=== PATIENT | male | born 1990 | race Caucasian/White ===

== ENCOUNTER 2017-05-29 13:00 | Emergency (ER) | payer BC ==
[2017-05-29] MEDS ORDERED: IBUPROFEN 600 MG TAB PO ONE (13:52)
--- NOTE | 2017-05-29 13:55 | EDPHY ---
H & P Time Seen by Provider: 05/29/17 13:42 HPI/ROS: CHIEF COMPLAINT: Left shoulder injury HISTORY OF PRESENT ILLNESS: Patient was [place] and climbing at the [place] when he fell off and hit his wrist on a hold on the way down and thinks he dislocated his shoulder. Pain in the left shoulder which is severe with movement or palpation. REVIEW OF SYSTEMS: No elbow wrist or hand symptoms. PAST MEDICAL HISTORY: Negative General Appearance: Alert and conversant, cooperative. No clavicular tenderness. Left AC step-off. Limited range of motion of the left shoulder. No humeral or elbow or forearm wrist or hand tenderness. Normal motor sensory and radial pulse in the left hand. Normal axillary nerve sensation. Emergency Department course/MDM: One-view x-ray shows anterior dislocation. Procedure: Dislocation reduction. Indication: Dislocation of the the left glenohumeral joint. Risks, benefits, alternatives discussed with the patient including but not limited to fracture, nerve or blood vessel injury, and consent obtained. A timeout was completed. The shoulder was reduced in the usual fashion without complications. Post reduction the patient's neurovascular exam is normal. Post reduction x-ray demonstrates reduction of the joint to the anatomic position. The procedure was performed by myself. Smoking Status: Never smoked Constitutional: Initial Vital Signs Temperature (C) 36.4 C 05/29/17 13:14 Heart Rate 74 05/29/17 13:14 Blood Pressure 93/53 L 05/29/17 13:14 O2 Sat (%) 100 05/29/17 13:14 O2 Delivery Mode Room Air Allergies/Adverse Reactions: No Known Allergies Allergy (Unverified 05/29/17 13:14) Home Medications: Medication Instructions Recorded NK [No Known Home Meds] 05/29/17 MDM/Departure - Depart Disposition: Home, Routine, Self-Care Clinical Impression: Anterior dislocation of left shoulder Qualifiers: Encounter type: initial encounter Qualified Code(s): S43.015A - Anterior dislocation of left humerus, initial encounter Condition: Good Instructions: Shoulder Dislocation (ED) Additional Instructions: Sling with limited range of motion of the left shoulder. Please follow-up with Dr. Quevedo orthopedist next week for evaluation. Referrals: Earl Quevedo MD [Medical Doctor] - As per Instructions
[2017-05-29 14:51] VITALS: BP 145/73; PULSE 78; RESP 16; TEMP 98.8; O2SAT 95
== END 2017-05-29 14:55 | disposition home or self-care (01) ==
PROC: 0RSKXZZ Reposition Left Shoulder Joint, External Approach (ICD-10-PCS; principal; 2017-05-29)
DX: S43.015A Anterior dislocation of left humerus, initial encounter (principal); W18.09XA Striking against other object with subsequent fall, initial encounter; Y99.8 Other external cause status; Y93.39 Activity, other involving climbing, rappelling and jumping off
CPT/HCPCS: A4565